=== PATIENT | female | born 1995 | race Caucasian/White ===

== ENCOUNTER → 2016-10-10 | Outpatient (CLI) | payer OTHER ==
--- NOTE | 2016-10-10 16:18 | US ---
EXAMINATION TYPE: US thyroid st tissue head/neck DATE OF EXAM: 10/10/2016 3:49 PM COMPARISON: NONE CLINICAL HISTORY: hypothyroidism. GLAND SIZE: Right Lobe: 4.8 x 1.3 x 1.7cm Overall Parenchyma: homogenous Left Lobe: 4.9 x 1.3 x 1.8cm Overall Parenchyma: homogeneous Isthmus Thickness: 0.1cm [employer] TECHNOLOGIST IMPRESSION: Bilateral neck scanned, no abnormal lymphadenopathy noted. Thyroid gland is normal in size and homogeneous in echotexture. No suspicious solid or cystic nodules are evident. IMPRESSION: Normal study.
== END | disposition home or self-care (01) ==
LOC: RADUSMAIN 15:26
PROVIDERS: ATTEND Family Medicine
DX: E03.9 Hypothyroidism, unspecified (principal)
CPT/HCPCS: 76536

== ENCOUNTER 2018-12-01 22:57 | Emergency (ER) | payer OTHER ==
[2018-12-01 23:49] LABS: Appearance,Urine Clear (Clear); Bacteria,Urine Rare /hpf; Bilirubin,Urine Negative (Negative); Blood,Urine Small (Negative); Color,Urine Yellow; Glucose,Urine (UA) Negative (Negative); Ketones,Urine Negative (Negative); Leukocyte Esterase,Urine Small (Negative); Mucus,Urine Rare /hpf; Nitrite,Urine Negative (Negative); Protein,Urine Trace (Negative); RBC,Urine 11 /hpf (0-5); Specific Gravity,Urine 1.013 (1.001-1.035); Squamous Epithelial Cell,Urine 1 /hpf (0-4); Urobilinogen,Urine <2.0 mg/dL (<2.0); WBC,Urine 21 /hpf (0-5)
[2018-12-02 00:26] LABS: Basophils # (A) 0.1 k/uL (0-0.2); Basophils % (A) 0 %; Eosinophils # (A) 0.3 k/uL (0-0.7); Eosinophils % (A) 2 %; HCT 39.2 % (34.0-46.0); HGB 12.8 gm/dL (11.4-16.0); Lymphocytes # (A) 3.7 k/uL (1.0-4.8); Lymphocytes % (A) 26 %; MCH 29.3 pg (25.0-35.0); MCHC 32.7 g/dL (31.0-37.0); MCV 89.5 fL (80.0-100.0); Mean Platelet Volume 5.9; Monocytes # (A) 0.5 k/uL (0-1.0); Monocytes % (A) 4 %; Neutrophils # (A) 9.5 k/uL (1.3-7.7); Neutrophils % (A) 67 %; Platelet Count 369 k/uL (150-450); RBC 4.38 m/uL (3.80-5.40); RDW 13.3 % (11.5-15.5); WBC 14.2 k/uL (3.8-10.6)
[2018-12-02 00:36] LABS: ALT 26 U/L (9-52); AST 14 U/L (14-36); Albumin 4.1 g/dL (3.5-5.0); Alkaline Phosphatase 66 U/L (38-126); Amylase 52 U/L (30-110); Anion Gap 8 mmol/L; Blood Urea Nitrogen 14 mg/dL (7-17); Calcium 9.5 mg/dL (8.4-10.2); Carbon Dioxide 27 mmol/L (22-30); Chloride 107 mmol/L (98-107); Glucose 110 mg/dL (74-99); Lipase 75 U/L (23-300); Potassium 4.3 mmol/L (3.5-5.1); Sodium 142 mmol/L (137-145); Total Bilirubin 0.4 mg/dL (0.2-1.3); Total Protein 7.8 g/dL (6.3-8.2)
[2018-12-02] MEDS ORDERED: KETOROLAC 30 MG/ML 1 ML VIAL IVP STA (01:03)
--- NOTE | 2018-12-02 01:07 | CT ---
EXAM: CT Abdomen and Pelvis With Intravenous Contrast CLINICAL HISTORY: right sided abd pain, prior on pacs, DLP TECHNIQUE: Axial computed tomography images of the abdomen and pelvis with 100 mL of Isovue-300 intravenous contrast. CTDI is 47 mGy and DLP is 2228.9 mGy- cm. This CT exam was performed using one or more of the following dose reduction techniques: automated exposure control, adjustment of the mA and/or kV according to patient size, and/or use of iterative reconstruction technique. COMPARISON: Pelvic ultrasound from 08-01-16 FINDINGS: Lung bases: Unremarkable. No mass. No consolidation. ABDOMEN: Liver: Moderately enlarged fatty liver. Gallbladder and bile ducts: Unremarkable. No calcified stones. No ductal dilation. Pancreas: Unremarkable. No mass. No ductal dilation. Spleen: Unremarkable. No splenomegaly. Adrenals: Unremarkable. No mass. Kidneys and ureters: Unremarkable. No solid mass. No hydronephrosis. Stomach and bowel: Unremarkable. No obstruction. No mucosal thickening. PELVIS: Appendix: Normal. Bladder: Unremarkable. No mass. Reproductive: Unremarkable as visualized. ABDOMEN and PELVIS: Intraperitoneal space: Unremarkable. No free air. No significant fluid collection. Bones/joints: No acute fracture. No dislocation. Soft tissues: Unremarkable. Vasculature: Unremarkable. No abdominal aortic aneurysm. Lymph nodes: Unremarkable. No enlarged lymph nodes. IMPRESSION: No acute findings. Mildly enlarged fatty liver
[2018-12-02] MEDS ORDERED: cefTRIAXone IN SWFI 1,000 MG/10 ML SYRINGE IVP STA (01:14)
--- NOTE | 2018-12-02 01:17 | ED ---
General Adult HPI - General Source: patient, family Mode of arrival: ambulatory Limitations: no limitations <Robin Chavarria P - Last Filed: 12/02/18 01:32> <Jenna Haji P - Last Filed: 12/02/18 01:58> - General Chief complaint: Abdominal Pain Stated complaint: abd pain Time Seen by Provider: 12/01/18 23:19 - History of Present Illness Initial comments: 23-year-old female presents to the emergency department for multiple complaints. Patient states she has bilateral back pain. She states this has been going on since this morning. Patient states she also does have some dysuria. Patient admits to lower abdominal pain as well. Denies nausea or vomiting. Denies fevers or chills. Patient has no other complaints at this time including shortness of breath, chest pain, nausea or vomiting, headache, or visual changes. (Robin Chavarria) - Related Data Home Medications Medication Instructions Recorded Confirmed Cyclobenzaprine [Flexeril] 10 mg PO HS 12/05/14 08/07/16 Ibuprofen [Motrin] 800 mg PO Q8HR PRN 12/05/14 08/07/16 Levothyroxine Sodium [Synthroid] 25 mcg PO DAILY 12/05/14 08/07/16 Nortriptyline HCl [Pamelor] 50 mg PO HS 12/05/14 08/07/16 Ondansetron [Zofran] 4 mg PO Q8HR PRN 12/05/14 08/07/16 Previous Rx's Medication Instructions Recorded Ibuprofen [Motrin] 600 mg PO Q8HR PRN #20 tab 12/05/14 LORazepam [Ativan] 0.5 mg PO Q8H PRN #5 tab 06/06/15 Baclofen 10 mg PO TID #30 tab 08/07/16 traMADol HCl [Ultram] 50 mg PO Q6H PRN #20 tab 08/07/16 Cephalexin [Keflex] 500 mg PO Q6HR 3 Days #12 cap 12/02/18 Allergies Allergy/AdvReac Type Severity Reaction Status Date / Time apple Allergy Nausea & Verified 12/01/18 23:15 Vomiting & Diarrhea codeine Allergy Rash/Hives Verified 12/01/18 23:15 furosemide [From Lasix] Allergy Anaphylaxis Verified 12/01/18 23:15 latex Allergy Anaphylaxis Verified 12/01/18 23:15 maitake mushroom Allergy Nausea & Verified 12/01/18 23:15 Vomiting & Diarrhea shellfish derived Allergy Nausea & Verified 12/01/18 23:15 Vomiting & Diarrhea Review of Systems ROS Other: All systems not noted in ROS Statement are negative. <Robin Chavarria P - Last Filed: 12/02/18 01:32> ROS Other: All systems not noted in ROS Statement are negative. <Jenna Haji P - Last Filed: 12/02/18 01:58> ROS Statement: Those systems with pertinent positive or pertinent negative responses have been documented in the HPI. Past Medical History Past Medical History: Asthma, Hypertension, Thyroid Disorder Additional Past Medical History / Comment(s): 1/2 Deaf, polycystic ovarian disease History of Any Multi-Drug Resistant Organisms: None Reported Past Surgical History: Adenoidectomy, Tonsillectomy Additional Past Surgical History / Comment(s): Right Eye Surgery, Tubes in Ears , Herniated Disc, Buldging Disc Past Psychological History: Anxiety, Depression Smoking Status: Never smoker Past Alcohol Use History: None Reported Past Drug Use History: None Reported <Robin Chavarria P - Last Filed: 12/02/18 01:32> General Exam Limitations: no limitations General appearance: alert, in no apparent distress Head exam: Present: atraumatic, normocephalic, normal inspection Eye exam: Present: normal appearance, PERRL, EOMI. Absent: scleral icterus, conjunctival injection, periorbital swelling ENT exam: Present: normal exam, mucous membranes moist Neck exam: Present: normal inspection, full ROM Respiratory exam: Present: normal lung sounds bilaterally. Absent: respiratory distress, wheezes, rales, rhonchi, stridor Cardiovascular Exam: Present: regular rate, normal rhythm, normal heart sounds. Absent: systolic murmur, diastolic murmur, rubs, gallop, clicks GI/Abdominal exam: Present: soft, normal bowel sounds. Absent: distended, tenderness, guarding, rebound, rigid Back exam: Absent: CVA tenderness (R) (no significant CVA tenderness), CVA tenderness (L) (no significant tenderness) Neurological exam: Present: alert, oriented X3, CN II-XII intact Psychiatric exam: Present: normal affect, normal mood <Robin Chavarria P - Last Filed: 12/02/18 01:32> Vital Signs 12/01/18 12/02/18 23:10 01:31 Temperature 98.3 F 98.4 F Pulse Rate 96 84 Respiratory 20 18 Rate Blood Pressure 142/81 140/92 O2 Sat by Pulse 100 98 Oximetry Medical Decision Making - Lab Data Result diagrams: 12/02/18 00:13 12/02/18 00:13 <Robin Chavarria P - Last Filed: 12/02/18 01:32> - Lab Data Result diagrams: 12/02/18 00:13 12/02/18 00:13 <Jenna Haji - Last Filed: 12/02/18 01:58> - Medical Decision Making 23-year-old female presents for multiple complaints. Patient has had bilateral flank pain and right lower quadrant pain times one day. No nausea or vomiting. No fevers. Patient does have right lower quadrant tenderness. Patient states she has a history of polycystic ovarian syndrome. CBC did show white count of 14 which is likely reactive. CMP within normal limits. Urine shows possible UTI which may be contributing to hematuria. CT was ordered given hematuria to the seat for nephrolithiasis. He was also ordered to evaluate for appendicitis as patient does have a white count with right lower quadrant pain. However CT negative. Discussed at this time with patient concern for secondary transmitted diseases which could cause lower pelvic pain. Patient states she does not have any concern for this. She recently got tested a few weeks ago which was negative and she has not changed any practices. Patient given Rocephin here and will be treated for urinary tract infection. Will follow up with primary care in the next couple days. Will return to the emergency Department if she has any worsening symptoms. (Robin Chavarria) I was available for consultation in the emergency department. The history and physical exam were done by the midlevel provider. I was consulted for this patient's care. I reviewed the case with the midlevel provider and based on their presentation of the patient, I agree with the assessment, medical decision making and plan of care as documented. (Jenna Haji) - Lab Data Lab Results 12/01/18 12/01/18 12/02/18 Range/Units 23:21 23:21 00:13 WBC (3.8-10.6) k/uL RBC (3.80-5.40) m/uL Hgb (11.4-16.0) gm/dL Hct (34.0-46.0) % MCV (80.0-100.0) fL MCH (25.0-35.0) pg MCHC (31.0-37.0) g/dL RDW (11.5-15.5) % Plt Count (150-450) k/uL Neutrophils % % Lymphocytes % % Monocytes % % Eosinophils % % Basophils % % Neutrophils # (1.3-7.7) k/uL Lymphocytes # (1.0-4.8) k/uL Monocytes # (0-1.0) k/uL Eosinophils # (0-0.7) k/uL Basophils # (0-0.2) k/uL Sodium 142 (137-145) mmol/L Potassium 4.3 (3.5-5.1) mmol/L Chloride 107 (98-107) mmol/L Carbon Dioxide 27 (22-30) mmol/L Anion Gap 8 mmol/L BUN 14 (7-17) mg/dL Creatinine 0.70 (0.52-1.04) mg/dL Est GFR (CKD-EPI)AfAm >90 (>60 ml/min/1.73 sqM) Est GFR (CKD-EPI)NonAf >90 (>60 ml/min/1.73 sqM) Glucose 110 H (74-99) mg/dL Calcium 9.5 (8.4-10.2) mg/dL Total Bilirubin 0.4 (0.2-1.3) mg/dL AST 14 (14-36) U/L ALT 26 (9-52) U/L Alkaline Phosphatase 66 (38-126) U/L Total Protein 7.8 (6.3-8.2) g/dL Albumin 4.1 (3.5-5.0) g/dL Amylase 52 (30-110) U/L Lipase 75 (23-300) U/L Urine Color Yellow Urine Appearance Clear (Clear) Urine pH 6.0 (5.0-8.0) Ur Specific [place] 1.013 (1.001-1.035) Urine Protein Trace H (Negative) Urine Glucose (UA) Negative (Negative) Urine Ketones Negative (Negative) Urine Blood Small H (Negative) Urine Nitrite Negative (Negative) Urine Bilirubin Negative (Negative) Urine Urobilinogen <2.0 (<2.0) mg/dL Ur Leukocyte Esterase Small H (Negative) Urine RBC 11 H (0-5) /hpf Urine WBC 21 H (0-5) /hpf Ur Squamous Epith Cells 1 (0-4) /hpf Urine Bacteria Rare H (None) /hpf Urine Mucus Rare H (None) /hpf Urine HCG, Qual Not Detected (Not Detectd) 12/02/18 Range/Units 00:13 WBC 14.2 H (3.8-10.6) k/uL RBC 4.38 (3.80-5.40) m/uL Hgb 12.8 (11.4-16.0) gm/dL Hct 39.2 (34.0-46.0) % MCV 89.5 (80.0-100.0) fL MCH 29.3 (25.0-35.0) pg MCHC 32.7 (31.0-37.0) g/dL RDW 13.3 (11.5-15.5) % Plt Count 369 (150-450) k/uL Neutrophils % 67 % Lymphocytes % 26 % Monocytes % 4 % Eosinophils % 2 % Basophils % 0 % Neutrophils # 9.5 H (1.3-7.7) k/uL Lymphocytes # 3.7 (1.0-4.8) k/uL Monocytes # 0.5 (0-1.0) k/uL Eosinophils # 0.3 (0-0.7) k/uL Basophils # 0.1 (0-0.2) k/uL Sodium (137-145) mmol/L Potassium (3.5-5.1) mmol/L Chloride (98-107) mmol/L Carbon Dioxide (22-30) mmol/L Anion Gap mmol/L BUN (7-17) mg/dL Creatinine (0.52-1.04) mg/dL Est GFR (CKD-EPI)AfAm (>60 ml/min/1.73 sqM) Est GFR (CKD-EPI)NonAf (>60 ml/min/1.73 sqM) Glucose (74-99) mg/dL Calcium (8.4-10.2) mg/dL Total Bilirubin (0.2-1.3) mg/dL AST (14-36) U/L ALT (9-52) U/L Alkaline Phosphatase (38-126) U/L Total Protein (6.3-8.2) g/dL Albumin (3.5-5.0) g/dL Amylase (30-110) U/L Lipase (23-300) U/L Urine Color Urine Appearance (Clear) Urine pH (5.0-8.0) Ur Specific [place] (1.001-1.035) Urine Protein (Negative) Urine Glucose (UA) (Negative) Urine Ketones (Negative) Urine Blood (Negative) Urine Nitrite (Negative) Urine Bilirubin (Negative) Urine Urobilinogen (<2.0) mg/dL Ur Leukocyte Esterase (Negative) Urine RBC (0-5) /hpf Urine WBC (0-5) /hpf Ur Squamous Epith Cells (0-4) /hpf Urine Bacteria (None) /hpf Urine Mucus (None) /hpf Urine HCG, Qual (Not Detectd) Disposition Is patient prescribed a controlled substance at d/c from ED?: No Time of Disposition: 01:27 <Robin Chavarria P - Last Filed: 12/02/18 01:32> <Jenna Haji P - Last Filed: 12/02/18 01:58> Clinical Impression: Urinary tract infection, Abdominal pain Disposition: HOME SELF-CARE Condition: Good Instructions (If sedation given, give patient instructions): Urinary Tract Infection in Women (ED) Additional Instructions: Please take antibiotic as directed. Please follow up with primary care in 1-2 days. If symptoms are worsening return to the emergency department. Prescriptions: Cephalexin [Keflex] 500 mg PO Q6HR 3 Days #12 cap Referrals: Emmanuelle Hernandez MD [Primary Care Provider] - 1-2 days
[2018-12-02 01:32] VITALS: BP 140/92; PULSE 84; RESP 18; TEMP 98.4
[2018-12-04 13:20] LABS: N. gonorrhoeae,PCR Negative (Neg,Equiv); Neisseria Source Urine
[2018-12-04 13:43] LABS: C. trachomatis,PCR Negative (Neg,Equiv); Chlamydia trachomatis Source Urine
== END 2018-12-02 01:41 | disposition home or self-care (01) ==
LOC: EC 22:57
DX: N39.0 Urinary tract infection, site not specified (principal); R10.31 Right lower quadrant pain; E07.9 Disorder of thyroid, unspecified; F32.9 Major depressive disorder, single episode, unspecified; F41.9 Anxiety disorder, unspecified; Z79.890 Hormone replacement therapy; Z79.899 Other long term (current) drug therapy; Z91.018 Allergy to other foods; Z91.040 Latex allergy status; Z91.013 Allergy to seafood; Z88.8 Allergy status to other drugs, medicaments and biological substances; Z88.5 Allergy status to narcotic agent
CPT/HCPCS: 36415; 80053; 82150; 83690; 85025; 81001; 81025; 87040; 87491; 87591; 87086; 74177; 99284; 96374; 96375; J0696; J1885; Q9967; 87077; 87186

== ENCOUNTER 2020-06-14 13:52 | Emergency (ER) | payer BC, OTHER ==
[2020-06-14 14:05] VITALS: BP 156/109; PULSE 100; RESP 18; TEMP 98.1
[2020-06-14] MEDS ORDERED: SODIUM CHLORIDE 0.9% 1,000 ML IV STA (14:34)
--- NOTE | 2020-06-14 14:34 | ED ---
General Adult HPI - General Chief complaint: Dizziness Stated complaint: Dizziness, Vomiting Time Seen by Provider: 06/14/20 14:07 Source: patient Mode of arrival: ambulatory Limitations: no limitations - History of Present Illness Initial comments: Dictation was produced using [employer] dictation software. please excuse any grammatical, word or spelling errors. This patient was cared for during a federal and state declared state of emergency secondary to Covid 19 Chief Complaint: 24-year-old female past medical history of hypertension, thyroid disease, pCO2 of some asthma presents with dizziness History of Present Illness: Since 24-year-old female presents today with dizziness. Patient states that her symptoms started at 6 AM this morning. She went to bed last night in her usual state of health.. She'll go at 6 AM this morning with paraspinal left pain that radiates up and down her back. She was complains of dizziness. She feels as though the room is spinning. She reports that her symptoms are worse and movement. And a fatigue when she is not moving. She denies any vision changes. She had an episode of nonbilious nonbloody emesis. She is history of hearing deficit and required ear surgery as a child. The ROS documented in this emergency department record has been reviewed and confirmed by me. Those systems with pertinent positive or negative responses have been documented in the HPI. All other systems are other negative and/or noncontributory. PHYSICAL EXAM: General Impression: Alert and oriented x3, not in acute distress HEENT: Normocephalic atraumatic, extra-ocular movements intact, pupils equal and reactive to light bilaterally, mucous membranes moist. Cardiovascular: Heart regular rate and rhythm Chest: Able to complete full sentences, no retractions, no tachypnea Abdomen: abdomen soft, non-tender, non-distended, no organomegaly Musculoskeletal: Pulses present and equal in all extremities, no peripheral edema Motor: no focal deficits noted Neurological: CN II-XII grossly intact, no focal motor or sensory deficits noted, no nystagmus Skin: Intact with no visualized rashes Psych: Normal affect and mood ED course: 24-year-old feel presents with positional vertigo signs upon arrival are within acceptable limits. Laboratory evaluation obtained. CBC, metabolic panel is unremarkable. Beta hCG is negative. Patient given Antivert and Zofran with improvement of symptoms. Patient has benign features with her dizziness. Patient given prescription for Antivert and Zofran. She is advised to follow-up with her primary care physician for outpatient management of her symptoms. Return parameters discussed. Patient discharged. EKG interpretation: Ventricular rate 93, normal sinus rhythm, TN interval 160, QRS 84, QTC 477. No TN prolongation, no QTC prolongation, no ST or T-wave changes noted. . Overall, this EKG is unremarkable - Related Data Home Medications Medication Instructions Recorded Confirmed Cyclobenzaprine [Flexeril] 10 mg PO HS 12/05/14 08/07/16 Ibuprofen [Motrin] 800 mg PO Q8HR PRN 12/05/14 08/07/16 Levothyroxine Sodium [Synthroid] 25 mcg PO DAILY 12/05/14 08/07/16 Nortriptyline HCl [Pamelor] 50 mg PO HS 12/05/14 08/07/16 Ondansetron [Zofran] 4 mg PO Q8HR PRN 12/05/14 08/07/16 Previous Rx's Medication Instructions Recorded Ibuprofen [Motrin] 600 mg PO Q8HR PRN #20 tab 12/05/14 LORazepam [Ativan] 0.5 mg PO Q8H PRN #5 tab 06/06/15 Baclofen 10 mg PO TID #30 tab 08/07/16 traMADol HCl [Ultram] 50 mg PO Q6H PRN #20 tab 08/07/16 Cephalexin [Keflex] 500 mg PO Q6HR 3 Days #12 cap 12/02/18 Meclizine [Antivert] 25 mg PO TID PRN #15 tab 06/14/20 Ondansetron Odt [Zofran Odt] 4 mg PO Q8HR PRN #12 tab 06/14/20 Allergies Allergy/AdvReac Type Severity Reaction Status Date / Time apple Allergy Nausea & Verified 06/14/20 14:02 Vomiting & Diarrhea codeine Allergy Rash/Hives Verified 06/14/20 14:02 furosemide [From Lasix] Allergy Anaphylaxis Verified 06/14/20 14:02 latex Allergy Anaphylaxis Verified 06/14/20 14:02 maitake mushroom Allergy Nausea & Verified 06/14/20 14:02 Vomiting & Diarrhea shellfish derived Allergy Nausea & Verified 06/14/20 14:02 Vomiting & Diarrhea Review of Systems ROS Statement: Those systems with pertinent positive or pertinent negative responses have been documented in the HPI. ROS Other: All systems not noted in ROS Statement are negative. Past Medical History Past Medical History: Asthma, Hypertension, Thyroid Disorder Additional Past Medical History / Comment(s): 1/2 Deaf, polycystic ovarian dis ease History of Any Multi-Drug Resistant Organisms: None Reported Past Surgical History: Adenoidectomy, Tonsillectomy Additional Past Surgical History / Comment(s): Right Eye Surgery, Tubes in Ears, Herniated Disc, Buldging Disc Past Psychological History: Anxiety, Depression Smoking Status: Never smoker Past Alcohol Use History: Occasional Past Drug Use History: None Reported General Exam Limitations: no limitations Course Vital Signs 06/14/20 14:02 Temperature 98.1 F Pulse Rate 100 Respiratory 18 Rate Blood Pressure 156/109 O2 Sat by Pulse 98 Oximetry Medical Decision Making - Lab Data Result diagrams: 06/14/20 14:40 06/14/20 14:40 Lab Results 06/14/20 06/14/20 06/14/20 Range/Units 14:33 14:40 14:40 WBC 10.2 (3.8-10.6) k/uL RBC 4.88 (3.80-5.40) m/uL Hgb 13.9 (11.4-16.0) gm/dL Hct 43.2 (34.0-46.0) % MCV 88.6 (80.0-100.0) fL MCH 28.4 (25.0-35.0) pg MCHC 32.1 (31.0-37.0) g/dL RDW 13.0 (11.5-15.5) % Plt Count 367 (150-450) k/uL Neutrophils % 65 % Lymphocytes % 28 % Monocytes % 5 % Eosinophils % 1 % Basophils % 1 % Neutrophils # 6.6 (1.3-7.7) k/uL Lymphocytes # 2.8 (1.0-4.8) k/uL Monocytes # 0.5 (0-1.0) k/uL Eosinophils # 0.1 (0-0.7) k/uL Basophils # 0.1 (0-0.2) k/uL Sodium 139 (137-145) mmol/L Potassium 4.1 (3.5-5.1) mmol/L Chloride 106 (98-107) mmol/L Carbon Dioxide 26 (22-30) mmol/L Anion Gap 7 mmol/L BUN 10 (7-17) mg/dL Creatinine 0.66 (0.52-1.04) mg/dL Est GFR (CKD-EPI)AfAm >90 (>60 ml/min/1.73 sqM) Est GFR (CKD-EPI)NonAf >90 (>60 ml/min/1.73 sqM) Glucose 113 H (74-99) mg/dL Calcium 9.1 (8.4-10.2) mg/dL Urine HCG, Qual Not Detected (Not Detectd) Disposition Clinical Impression: Dizziness Disposition: HOME SELF-CARE Condition: Good Instructions (If sedation given, give patient instructions): Dizziness (ED) Additional Instructions: prescriptions sent to your preferred pharmacy Prescriptions: Meclizine [Antivert] 25 mg PO TID PRN #15 tab PRN Reason: dizziness Ondansetron Odt [Zofran Odt] 4 mg PO Q8HR PRN #12 tab PRN Reason: Nausea Is patient prescribed a controlled substance at d/c from ED?: No Referrals: Emmanuelle Hernandez MD [Primary Care Provider] - 1-2 days Time of Disposition: 15:21
[2020-06-14 14:53] LABS: Basophils # (A) 0.1 k/uL (0-0.2); Basophils % (A) 1 %; Eosinophils # (A) 0.1 k/uL (0-0.7); Eosinophils % (A) 1 %; HCT 43.2 % (34.0-46.0); HGB 13.9 gm/dL (11.4-16.0); Lymphocytes # (A) 2.8 k/uL (1.0-4.8); Lymphocytes % (A) 28 %; MCH 28.4 pg (25.0-35.0); MCHC 32.1 g/dL (31.0-37.0); MCV 88.6 fL (80.0-100.0); Monocytes # (A) 0.5 k/uL (0-1.0); Monocytes % (A) 5 %; Neutrophils # (A) 6.6 k/uL (1.3-7.7); Neutrophils % (A) 65 %; Platelet Count 367 k/uL (150-450); RBC 4.88 m/uL (3.80-5.40); WBC 10.2 k/uL (3.8-10.6)
[2020-06-14 15:02] LABS: African American GFR (CKD) >90 (>60 ml/min/1.73 sqM); Anion Gap 7 mmol/L; Blood Urea Nitrogen 10 mg/dL (7-17); Calcium 9.1 mg/dL (8.4-10.2); Carbon Dioxide 26 mmol/L (22-30); Chloride 106 mmol/L (98-107); Glucose 113 mg/dL (74-99); Non-African American GFR(CKD) >90 (>60 ml/min/1.73 sqM); Potassium 4.1 mmol/L (3.5-5.1); Sodium 139 mmol/L (137-145)
[2020-06-14] MEDS ORDERED: MECLIZINE 12.5 MG TAB PO STA (15:04)
[2020-06-14] MEDS ORDERED: ONDANSETRON ODT 8 MG TAB.RAPDIS PO STA (15:04)
== END 2020-06-14 15:59 | disposition home or self-care (01) ==
LOC: EC 13:52
DX: R42 Dizziness and giddiness (principal); R53.83 Other fatigue; R11.10 Vomiting, unspecified; E07.9 Disorder of thyroid, unspecified; F32.9 Major depressive disorder, single episode, unspecified; Z79.890 Hormone replacement therapy; Z79.899 Other long term (current) drug therapy; Z88.8 Allergy status to other drugs, medicaments and biological substances; Z91.048 Other nonmedicinal substance allergy status; Z91.040 Latex allergy status; Z91.013 Allergy to seafood; Z91.018 Allergy to other foods; Z88.5 Allergy status to narcotic agent
CPT/HCPCS: 36415; 80048; 81025; 85025; 93005; 96360; 99284

== ENCOUNTER → 2020-08-21 | Outpatient (CLI) | payer BC ==
--- NOTE | 2020-08-21 07:56 | CT ---
EXAMINATION TYPE: CT sinus wo con DATE OF EXAM: 08/21/2020 COMPARISON: None HISTORY: Neoplasm of uncertain behavior of pharynx CT DLP: 648.[address] of the paranasal sinuses was performed in the axial and coronal planes. Bone and soft tissue settings are submitted. The paranasal sinuses demonstrate normal aeration and development. The paranasal sinuses are free of mucosal thickening or air fluid level. The osteal meatal units are patent bilaterally. The nasal septum is midline. No bony destructive changes are seen within the field of view. IMPRESSION: Normal unenhanced CT of the paranasal sinuses.
== END | disposition home or self-care (01) ==
LOC: RADCTMAIN 07:08
PROVIDERS: ATTEND Otolaryngology Otolaryngic Allergy
DX: D37.05 Neoplasm of uncertain behavior of pharynx (principal)
CPT/HCPCS: 70486

== ENCOUNTER 2021-01-18 21:33 | Emergency (ER) | payer BC ==
[2021-01-18 22:19] VITALS: RESP 18
--- NOTE | 2021-01-19 00:07 | XR ---
EXAMINATION TYPE: XR chest 2V DATE OF EXAM: 01/19/2021 COMPARISON: NONE HISTORY: 08/19/2015 TECHNIQUE: 2 views FINDINGS: Heart and mediastinum are normal. Lungs are clear. Diaphragm is normal. Bony thorax appears normal. IMPRESSION: Normal chest. No change.
[2021-01-19 01:44] VITALS: BP 114/65; PULSE 71; TEMP 97.6
--- NOTE | 2021-01-19 01:49 | ED ---
Chest Pain HPI - General Chief Complaint: Chest Pain Stated Complaint: Chest pain,Light headed Source: patient Mode of arrival: wheelchair Limitations: no limitations - History of Present Illness Initial Comments: This patient is 25-year-old woman who presents to be alive for pain to the left anterior chest that came on tonight around 5O she was at work. She was also feeling dizzy and her breathing did not feel right. Patient reportedly took blood pressure at work and it was very high. No diaphoresis, palpitations, nausea or vomiting. When I am interviewing the patient, she states the pain is better she does continue to have some dizziness. MD Complaint: chest pain Onset/Timin -: hour(s) Onset: during rest Pain Location: left chest Pain Radiation: none Quality: aching Consistency: constant Improves With: nothing Worsens With: nothing - Related Data Home Medications Medication Instructions Recorded Confirmed Cyclobenzaprine [Flexeril] 10 mg PO HS 12/05/14 08/07/16 Ibuprofen [Motrin] 800 mg PO Q8HR PRN 12/05/14 08/07/16 Levothyroxine Sodium [Synthroid] 25 mcg PO DAILY 12/05/14 08/07/16 Nortriptyline HCl [Pamelor] 50 mg PO HS 12/05/14 08/07/16 Ondansetron [Zofran] 4 mg PO Q8HR PRN 12/05/14 08/07/16 Previous Rx's Medication Instructions Recorded Ibuprofen [Motrin] 600 mg PO Q8HR PRN #20 tab 12/05/14 LORazepam [Ativan] 0.5 mg PO Q8H PRN #5 tab 06/06/15 Baclofen 10 mg PO TID #30 tab 08/07/16 traMADol HCl [Ultram] 50 mg PO Q6H PRN #20 tab 08/07/16 Cephalexin [Keflex] 500 mg PO Q6HR 3 Days #12 cap 12/02/18 Meclizine [Antivert] 25 mg PO TID PRN #15 tab 06/14/20 Ondansetron Odt [Zofran Odt] 4 mg PO Q8HR PRN #12 tab 06/14/20 Allergies Allergy/AdvReac Type Severity Reaction Status Date / Time apple Allergy Nausea & Verified 06/14/20 14:02 Vomiting & Diarrhea codeine Allergy Rash/Hives Verified 06/14/20 14:02 furosemide [From Lasix] Allergy Anaphylaxis Verified 06/14/20 14:02 latex Allergy Anaphylaxis Verified 06/14/20 14:02 maitake mushroom Allergy Nausea & Verified 06/14/20 14:02 Vomiting & Diarrhea shellfish derived Allergy Nausea & Verified 06/14/20 14:02 Vomiting & Diarrhea Review of Systems ROS Statement: Those systems with pertinent positive or pertinent negative responses have been documented in the HPI. ROS Other: All systems not noted in ROS Statement are negative. Constitutional: Denies: fever, chills, weakness Eyes: Denies: vision change ENT: Denies: congestion Respiratory: Denies: cough, dyspnea Cardiovascular: Reports: as per HPI, chest pain. Denies: palpitations, orthopnea, edema, syncope Gastrointestinal: Denies: abdominal pain, nausea, vomiting, diarrhea Genitourinary: Denies: dysuria, hematuria Musculoskeletal: Denies: back pain Skin: Denies: rash Neurological: Reports: vertigo. Denies: headache, weakness, numbness, paresthesias, confusion EKG Findings - EKG Results: EKG: interpreted by DORA EVANS, sinus rhythm (Rate 79 bpm), normal axis, normal QRS, normal ST/T, no acute changes Past Medical History Past Medical History: Asthma, Hypertension, Thyroid Disorder Additional Past Medical History / Comment(s): 1/2 Deaf, polycystic ovarian disease History of Any Multi-Drug Resistant Organisms: None Reported Past Surgical History: Adenoidectomy, Tonsillectomy Additional Past Surgical History / Comment(s): Right Eye Surgery, Tubes in Ears, Herniated Disc, Buldging Disc Past Psychological History: Anxiety, Depression Smoking Status: Never smoker Past Alcohol Use History: Occasional Past Drug Use History: None Reported General Exam Limitations: no limitations General appearance: alert, in no apparent distress Head exam: Present: atraumatic, normocephalic Eye exam: Present: normal appearance. Absent: scleral icterus, conjunctival injection ENT exam: Present: normal oropharynx Neck exam: Present: normal inspection Respiratory exam: Present: normal lung sounds bilaterally, chest wall tenderness. Absent: respiratory distress, wheezes, rales, rhonchi, stridor Cardiovascular Exam: Present: regular rate, normal rhythm, normal heart sounds. Absent: systolic murmur, diastolic murmur, rubs, gallop GI/Abdominal exam: Present: soft. Absent: distended, tenderness, guarding, rebound, rigid, mass Extremities exam: Present: normal inspection, normal capillary refill. Absent: pedal edema, calf tenderness Back exam: Present: normal inspection. Absent: CVA tenderness (R), CVA tenderness (L) Neurological exam: Present: alert Skin exam: Present: warm, dry, intact, normal color. Absent: rash Course Vital Signs 01/18/21 01/19/21 22:18 01:42 Temperature 97.9 F 97.6 F Pulse Rate 81 71 Respiratory 18 18 Rate Blood Pressure 138/81 114/65 O2 Sat by Pulse 100 98 Oximetry Chest Pain MDM - MDM This patient is 25-year-old woman with pain to the left anterior chest and into the shoulder. I did see her in the triage area as there was quite a long wait. I reviewed the patient's chest x-ray and EKG which had been done and these are normal. When I shared the results of this with her she stated that she was going home and she will return if the symptoms were not better. Again the exam the left anterior chest pain is reproducible. Reviewed that there is risk in leaving as we had not had chance to perform any additional tests, patient understands states she will return if symptoms are not improved or if there is any worsening in anyway. Disposition Clinical Impression: Chest pain Disposition: Left Against Medical Advice Condition: Undetermined Instructions (If sedation given, give patient instructions): Chest Pain (ED) Is patient prescribed a controlled substance at d/c from ED?: No Referrals: Mulugeta Wong MD [Primary Care Provider] - 1-2 days
== END 2021-01-19 01:50 | disposition home or self-care (01) ==
LOC: EC 21:33
DX: R07.89 Other chest pain (principal); R42 Dizziness and giddiness; I10 Essential (primary) hypertension; F41.9 Anxiety disorder, unspecified; F32.9 Major depressive disorder, single episode, unspecified; J45.909 Unspecified asthma, uncomplicated; Z79.899 Other long term (current) drug therapy
CPT/HCPCS: 71046; 93005; 99285

== ENCOUNTER 2021-05-30 00:51 | Emergency (ER) | payer BC ==
[2021-05-30 01:06] VITALS: BP 166/96; PULSE 112; RESP 20; TEMP 99.3
--- NOTE | 2021-05-30 02:37 | ED ---
Psych HPI - General Chief Complaint: Psychiatric Symptoms Stated Complaint: Mental Health Time Seen by Provider: 05/30/21 01:08 Source: patient Mode of arrival: ambulatory - History of Present Illness Initial Comments: 's patient is 25-year-old woman who presents with complaint of depressed mood and now are consistent thoughts of suicide. Patient states that it is now the anniversary of her father's and she has been more depressed. MD Complaint: suicidal ideation, feels depressed -: days(s) Associated Psychiatric Symptoms: depression, suicidal ideation Quality: getting worse Improves With: none Worsens With: none Context: significant life stressor - Related Data Home Medications Medication Instructions Recorded Confirmed Cyclobenzaprine [Flexeril] 10 mg PO HS 12/05/14 08/07/16 Ibuprofen [Motrin] 800 mg PO Q8HR PRN 12/05/14 08/07/16 Levothyroxine Sodium [Synthroid] 25 mcg PO DAILY 12/05/14 08/07/16 Nortriptyline HCl [Pamelor] 50 mg PO HS 12/05/14 08/07/16 Ondansetron [Zofran] 4 mg PO Q8HR PRN 12/05/14 08/07/16 Previous Rx's Medication Instructions Recorded Ibuprofen [Motrin] 600 mg PO Q8HR PRN #20 tab 12/05/14 LORazepam [Ativan] 0.5 mg PO Q8H PRN #5 tab 06/06/15 Baclofen 10 mg PO TID #30 tab 08/07/16 traMADol HCl [Ultram] 50 mg PO Q6H PRN #20 tab 08/07/16 Cephalexin [Keflex] 500 mg PO Q6HR 3 Days #12 cap 12/02/18 Meclizine [Antivert] 25 mg PO TID PRN #15 tab 06/14/20 Ondansetron Odt [Zofran Odt] 4 mg PO Q8HR PRN #12 tab 06/14/20 Allergies Allergy/AdvReac Type Severity Reaction Status Date / Time apple Allergy Nausea & Verified 05/30/21 01:06 Vomiting & Diarrhea codeine Allergy Rash/Hives Verified 05/30/21 01:06 furosemide [From Lasix] Allergy Anaphylaxis Verified 05/30/21 01:06 latex Allergy Anaphylaxis Verified 05/30/21 01:06 maitake mushroom Allergy Nausea & Verified 05/30/21 01:06 Vomiting & Diarrhea shellfish derived Allergy Nausea & Verified 05/30/21 01:06 Vomiting & Diarrhea Review of Systems ROS Statement: Those systems with pertinent positive or pertinent negative responses have been documented in the HPI. ROS Other: All systems not noted in ROS Statement are negative. Constitutional: Denies: fever Respiratory: Denies: cough, dyspnea Cardiovascular: Denies: chest pain, palpitations Gastrointestinal: Denies: abdominal pain, vomiting, diarrhea Musculoskeletal: Denies: back pain Skin: Denies: rash Neurological: Denies: headache Psychiatric: Reports: depression, suicidal thoughts. Denies: auditory hallucinations, visual hallucinations, homicidal thoughts Past Medical History Past Medical History: Asthma, Hypertension, Thyroid Disorder Additional Past Medical History / Comment(s): 1/2 Deaf, polycystic ovarian disease History of Any Multi-Drug Resistant Organisms: None Reported Past Surgical History: Adenoidectomy, Tonsillectomy Additional Past Surgical History / Comment(s): Right Eye Surgery, Tubes in Ears, Herniated Disc, Buldging Disc Past Psychological History: Anxiety, Depression Smoking Status: Never smoker Past Alcohol Use History: Occasional Past Drug Use History: None Reported General Exam Limitations: no limitations General appearance: alert, in no apparent distress Head exam: Present: atraumatic, normocephalic Eye exam: Present: normal appearance. Absent: scleral icterus, conjunctival injection ENT exam: Present: normal oropharynx Neck exam: Present: normal inspection Respiratory exam: Present: normal lung sounds bilaterally. Absent: respiratory distress, wheezes, rales, rhonchi, stridor Cardiovascular Exam: Present: regular rate, normal rhythm, normal heart sounds. Absent: systolic murmur, diastolic murmur, rubs, gallop GI/Abdominal exam: Present: soft. Absent: tenderness Extremities exam: Present: normal inspection, normal capillary refill Neurological exam: Present: alert Psychiatric exam: Present: depressed, suicidal ideation. Absent: agitated, anxious, flat affect, manic, homicidal ideation Skin exam: Present: warm, dry, intact, normal color. Absent: rash Course Vital Signs 05/30/21 01:03 Temperature 99.3 F Pulse Rate 112 H Respiratory 20 Rate Blood Pressure 166/96 O2 Sat by Pulse 96 Oximetry Disposition Clinical Impression: Mood disorder Disposition: HOME SELF-CARE Condition: Good Instructions (If sedation given, give patient instructions): Mood Disorders (ED), Suicide Prevention (ED) Is patient prescribed a controlled substance at d/c from ED?: No Referrals: Musa Dueñas III, MD [Primary Care Provider] - 1-2 days
== END 2021-05-30 03:40 | disposition home or self-care (01) ==
LOC: EC 00:51
DX: F32.9 Major depressive disorder, single episode, unspecified (principal); I10 Essential (primary) hypertension; E07.9 Disorder of thyroid, unspecified; J45.909 Unspecified asthma, uncomplicated; Z88.8 Allergy status to other drugs, medicaments and biological substances; Z91.040 Latex allergy status; Z91.013 Allergy to seafood; Z91.018 Allergy to other foods; Z88.5 Allergy status to narcotic agent; Z79.890 Hormone replacement therapy
CPT/HCPCS: 82075; 99284

== ENCOUNTER 2022-09-20 06:11 | Emergency (ER) | payer BC, OTHER ==
[2022-09-20] MEDS ORDERED: SODIUM CHLORIDE 0.9% 1,000 ML IV STA (06:25)
[2022-09-20 06:48] LABS: Basophils # (A) 0.1 k/uL (0-0.2); Basophils % (A) 1 %; Eosinophils # (A) 0.2 k/uL (0-0.7); Eosinophils % (A) 2 %; HCT 43.8 % (34.0-46.0); HGB 14.5 gm/dL (11.4-16.0); Lymphocytes # (A) 3.7 k/uL (1.0-4.8); Lymphocytes % (A) 33 %; MCH 30.6 pg (25.0-35.0); MCV 92.7 fL (80.0-100.0); Mean Platelet Volume 7.9; Monocytes # (A) 0.6 k/uL (0-1.0); Monocytes % (A) 6 %; Neutrophils # (A) 6.7 k/uL (1.3-7.7); Neutrophils % (A) 58 %; Platelet Count 360 k/uL (150-450); RBC 4.73 m/uL (3.80-5.40); WBC 11.4 k/uL (3.8-10.6)
--- NOTE | 2022-09-20 06:53 | ED ---
Abdominal Pain HPI - General Chief Complaint: Abdominal Pain Stated Complaint: Right lower abdominal pain Time Seen by Provider: 09/20/22 06:22 Source: patient, RN notes reviewed Mode of arrival: ambulatory Limitations: no limitations - History of Present Illness Initial Comments: 27-year-old female presents emergency Department with chief complaint right- sided abdominal pain. Patient states started a few days ago states that has progressed has not improved. Patient does admit that is wax and wane rates to the right flank region. She notes nausea vomiting diarrhea. She has a history of PCOS but states that this does not feel similar. She has no food association denies fevers chills chest pain or shortness of breath no shoulder pain. Denies any vaginal symptoms denies any chance . - Related Data Home Medications Medication Instructions Recorded Confirmed Cyclobenzaprine [Flexeril] 10 mg PO HS 12/05/14 08/07/16 Ibuprofen [Motrin] 800 mg PO Q8HR PRN 12/05/14 08/07/16 Levothyroxine Sodium [Synthroid] 25 mcg PO DAILY 12/05/14 08/07/16 Nortriptyline HCl [Pamelor] 50 mg PO HS 12/05/14 08/07/16 Ondansetron [Zofran] 4 mg PO Q8HR PRN 12/05/14 08/07/16 Previous Rx's Medication Instructions Recorded Ibuprofen [Motrin] 600 mg PO Q8HR PRN #20 tab 12/05/14 LORazepam [Ativan] 0.5 mg PO Q8H PRN #5 tab 06/06/15 Baclofen 10 mg PO TID #30 tab 08/07/16 traMADol HCl [Ultram] 50 mg PO Q6H PRN #20 tab 08/07/16 Cephalexin [Keflex] 500 mg PO Q6HR 3 Days #12 cap 12/02/18 Meclizine [Antivert] 25 mg PO TID PRN #15 tab 06/14/20 Ondansetron Odt [Zofran Odt] 4 mg PO Q8HR PRN #12 tab 06/14/20 Allergies Allergy/AdvReac Type Severity Reaction Status Date / Time apple Allergy Nausea & Verified 05/30/21 01:06 Vomiting & Diarrhea codeine Allergy Rash/Hives Verified 05/30/21 01:06 latex Allergy Anaphylaxis Verified 05/30/21 01:06 maitake mushroom Allergy Nausea & Verified 05/30/21 01:06 Vomiting & Diarrhea shellfish derived Allergy Nausea & Verified 05/30/21 01:06 Vomiting & Diarrhea Review of Systems ROS Statement: Those systems with pertinent positive or pertinent negative responses have been documented in the HPI. ROS Other: All systems not noted in ROS Statement are negative. Past Medical History Past Medical History: Asthma, Hypertension, Thyroid Disorder Additional Past Medical History / Comment(s): 1/2 Deaf, polycystic ovarian disease History of Any Multi-Drug Resistant Organisms: None Reported Past Surgical History: Adenoidectomy, Tonsillectomy Additional Past Surgical History / Comment(s): Right Eye Surgery, Tubes in Ears, Herniated Disc, Buldging Disc Past Psychological History: Anxiety, Depression Smoking Status: Never smoker Past Alcohol Use History: Occasional Past Drug Use History: None Reported General Exam Limitations: no limitations General appearance: alert, in no apparent distress Head exam: Present: atraumatic, normocephalic, normal inspection Eye exam: Present: normal appearance, PERRL, EOMI. Absent: scleral icterus, conjunctival injection, periorbital swelling ENT exam: Present: normal exam, normal oropharynx, mucous membranes moist Neck exam: Present: normal inspection, full ROM. Absent: tenderness, meningismus, lymphadenopathy Respiratory exam: Present: normal lung sounds bilaterally. Absent: respiratory distress, wheezes, rales, rhonchi, stridor Cardiovascular Exam: Present: regular rate, normal rhythm, normal heart sounds. Absent: systolic murmur, diastolic murmur, rubs, gallop, clicks GI/Abdominal exam: Present: soft, tenderness, normal bowel sounds. Absent: distended, guarding, rebound, rigid Back exam: Absent: CVA tenderness (R), CVA tenderness (L) Neurological exam: Present: alert Skin exam: Present: warm, dry, intact, normal color. Absent: rash Course Vital Signs 09/20/22 06:15 Temperature 97.9 F Pulse Rate 87 Respiratory 19 Rate Blood Pressure 156/95 O2 Sat by Pulse 99 Oximetry Medical Decision Making - Medical Decision Making 27-year-old presented for right-sided abdominal pain. Patient CT interpreted by me and radiology shows evidence of sasha kidney stone otherwise unremarkable patient does have PCOS patient glucose is elevated with 4+ glucose and her urinalysis patient was informed she is to follow-up regarding this possible medications. Patient is to follow for diet for concerns of gallbladder dysfunctional follow with PCP return parameters discussed - Lab Data Result diagrams: 09/20/22 06:31 09/20/22 06:31 Lab Results 09/20/22 09/20/22 09/20/22 Range/Units 06:31 06:31 06:31 WBC 11.4 H (3.8-10.6) k/uL RBC 4.73 (3.80-5.40) m/uL Hgb 14.5 (11.4-16.0) gm/dL Hct 43.8 (34.0-46.0) % MCV 92.7 (80.0-100.0) fL MCH 30.6 (25.0-35.0) pg MCHC 33.0 (31.0-37.0) g/dL RDW 13.0 (11.5-15.5) % Plt Count 360 (150-450) k/uL MPV 7.9 Neutrophils % 58 % Lymphocytes % 33 % Monocytes % 6 % Eosinophils % 2 % Basophils % 1 % Neutrophils # 6.7 (1.3-7.7) k/uL Lymphocytes # 3.7 (1.0-4.8) k/uL Monocytes # 0.6 (0-1.0) k/uL Eosinophils # 0.2 (0-0.7) k/uL Basophils # 0.1 (0-0.2) k/uL Sodium 139 (137-145) mmol/L Potassium 4.2 (3.5-5.1) mmol/L Chloride 104 (98-107) mmol/L Carbon Dioxide 28 (22-30) mmol/L Anion Gap 7 mmol/L BUN 13 (7-17) mg/dL Creatinine 0.72 (0.52-1.04) mg/dL Est GFR (CKD-EPI)AfAm >90 (>60 ml/min/1.73 sqM) Est GFR (CKD-EPI)NonAf >90 (>60 ml/min/1.73 sqM) Glucose 277 H (74-99) mg/dL Calcium 8.6 (8.4-10.2) mg/dL Total Bilirubin 0.6 (0.2-1.3) mg/dL AST 62 H (14-36) U/L ALT 90 H (4-34) U/L Alkaline Phosphatase 112 (38-126) U/L Total Protein 8.1 (6.3-8.2) g/dL Albumin 4.2 (3.5-5.0) g/dL Lipase 118 (23-300) U/L Urine Color Yellow Urine Appearance Clear (Clear) Urine pH 6.0 (5.0-8.0) Ur Specific [place] 1.025 (1.001-1.035) Urine Protein Trace H (Negative) Urine Glucose (UA) 4+ H (Negative) Urine Ketones Negative (Negative) Urine Blood Negative (Negative) Urine Nitrite Negative (Negative) Urine Bilirubin Negative (Negative) Urine Urobilinogen 2.0 (<2.0) mg/dL Ur Leukocyte Esterase Trace H (Negative) Urine RBC 1 (0-5) /hpf Urine WBC 2 (0-5) /hpf Ur Squamous Epith Cells 2 (0-4) /hpf Urine Bacteria Occasional H (None) /hpf Urine Mucus Rare H (None) /hpf Urine HCG, Qual (Not Detectd) 09/20/22 Range/Units 06:31 WBC (3.8-10.6) k/uL RBC (3.80-5.40) m/uL Hgb (11.4-16.0) gm/dL Hct (34.0-46.0) % MCV (80.0-100.0) fL MCH (25.0-35.0) pg MCHC (31.0-37.0) g/dL RDW (11.5-15.5) % Plt Count (150-450) k/uL MPV Neutrophils % % Lymphocytes % % Monocytes % % Eosinophils % % Basophils % % Neutrophils # (1.3-7.7) k/uL Lymphocytes # (1.0-4.8) k/uL Monocytes # (0-1.0) k/uL Eosinophils # (0-0.7) k/uL Basophils # (0-0.2) k/uL Sodium (137-145) mmol/L Potassium (3.5-5.1) mmol/L Chloride (98-107) mmol/L Carbon Dioxide (22-30) mmol/L Anion Gap mmol/L BUN (7-17) mg/dL Creatinine (0.52-1.04) mg/dL Est GFR (CKD-EPI)AfAm (>60 ml/min/1.73 sqM) Est GFR (CKD-EPI)NonAf (>60 ml/min/1.73 sqM) Glucose (74-99) mg/dL Calcium (8.4-10.2) mg/dL Total Bilirubin (0.2-1.3) mg/dL AST (14-36) U/L ALT (4-34) U/L Alkaline Phosphatase (38-126) U/L Total Protein (6.3-8.2) g/dL Albumin (3.5-5.0) g/dL Lipase (23-300) U/L Urine Color Urine Appearance (Clear) Urine pH (5.0-8.0) Ur Specific [place] (1.001-1.035) Urine Protein (Negative) Urine Glucose (UA) (Negative) Urine Ketones (Negative) Urine Blood (Negative) Urine Nitrite (Negative) Urine Bilirubin (Negative) Urine Urobilinogen (<2.0) mg/dL Ur Leukocyte Esterase (Negative) Urine RBC (0-5) /hpf Urine WBC (0-5) /hpf Ur Squamous Epith Cells (0-4) /hpf Urine Bacteria (None) /hpf Urine Mucus (None) /hpf Urine HCG, Qual Not Detected (Not Detectd) Disposition Clinical Impression: Abdominal pain, Hyperglycemia Disposition: HOME SELF-CARE Condition: Stable Instructions (If sedation given, give patient instructions): Abdominal Pain (ED), Low Fat Diet (ED) Additional Instructions: Please return to the Emergency Department if symptoms worsen or any other concerns. Is patient prescribed a controlled substance at d/c from ED?: No Referrals: None,Stated [Primary Care Provider] - 1-2 days Anival Adorno MD [STAFF PHYSICIAN] - 1-2 days Time of Disposition: 08:00
[2022-09-20 06:57] LABS: ALT 90 U/L (4-34); AST 62 U/L (14-36); African American GFR (CKD) >90 (>60 ml/min/1.73 sqM); Albumin 4.2 g/dL (3.5-5.0); Alkaline Phosphatase 112 U/L (38-126); Anion Gap 7 mmol/L; Blood Urea Nitrogen 13 mg/dL (7-17); Calcium 8.6 mg/dL (8.4-10.2); Carbon Dioxide 28 mmol/L (22-30); Chloride 104 mmol/L (98-107); Glucose 277 mg/dL (74-99); Lipase 118 U/L (23-300); Non-African American GFR(CKD) >90 (>60 ml/min/1.73 sqM); Potassium 4.2 mmol/L (3.5-5.1); Sodium 139 mmol/L (137-145); Total Bilirubin 0.6 mg/dL (0.2-1.3); Total Protein 8.1 g/dL (6.3-8.2)
[2022-09-20 06:59] LABS: Appearance,Urine Clear (Clear); Bacteria,Urine Occasional /hpf; Bilirubin,Urine Negative (Negative); Blood,Urine Negative (Negative); Color,Urine Yellow; Glucose,Urine (UA) 4+ (Negative); Ketones,Urine Negative (Negative); Leukocyte Esterase,Urine Trace (Negative); Mucus,Urine Rare /hpf; Nitrite,Urine Negative (Negative); Protein,Urine Trace (Negative); RBC,Urine 1 /hpf (0-5); Specific Gravity,Urine 1.025 (1.001-1.035); Squamous Epithelial Cell,Urine 2 /hpf (0-4); WBC,Urine 2 /hpf (0-5)
--- NOTE | 2022-09-20 07:47 | CT ---
EXAMINATION TYPE: CT abdomen pelvis wo con CT DLP: 3061.4 mGycm, Automated exposure control for dose reduction was used. DATE OF EXAM: 09/20/2022 7:37 AM COMPARISON: CT abdomen pelvis most recent from 12/02/2018. CLINICAL INDICATION:Female, 27 years old with history of Right-sided pain; RLQ Pain x 5 days TECHNIQUE: Standard CT of the abdomen and pelvis without IV or oral contrast. Lack of IV or oral co ntrast limits evaluation of solid and hollow organ viscera. Coronal and sagittal reformats were perfo rmed. FINDINGS: LOWER CHEST: Unremarkable ABDOMEN LIVER: Diffusely hypoattenuating parenchyma. GALLBLADDER AND BILE DUCTS: Unremarkable. PANCREAS: Unremarkable. SPLEEN: Unremarkable. ADRENAL GLANDS: Unremarkable. KIDNEYS AND URETERS: No evidence of hydronephrosis. Nonobstructive 3 mm right mid kidney calculus. No ureteral calculi demonstrated. PELVIS BLADDER: Under distended, limiting evaluation. REPRODUCTIVE: Unremarkable noncontrast appearance. ABDOMEN & PELVIS STOMACH AND BOWEL: Stomach and duodenum are unremarkable. No focal wall thickening or surrounding in flammatory changes. The appendix is within normal limits. No evidence of bowel obstruction. PERITONEUM: No evidence of pneumoperitoneum or free fluid. VASCULATURE: No evidence of aortic aneurysm. MUSCULOSKELETAL: No acute osseous abnormalities. Degenerative disc disease most pronounced at L4-L5 w ith disc space narrowing, endplate sclerosis, vacuum disc disease, and osteophytosis. LYMPH NODES: No gross evidence for lymphadenopathy. SOFT TISSUE/ABDOMINAL WALL: Tiny fat filled umbilical hernia. IMPRESSION: 1. No acute abdominal/pelvic process. 2. Nonobstructive right renal calculus. 3. Hepatic steatosis.
[2022-09-20 08:20] VITALS: BP 143/95; PULSE 90; RESP 18; TEMP 98.3
== END 2022-09-20 08:21 | disposition home or self-care (01) ==
LOC: EC 06:11
DX: R10.31 Right lower quadrant pain (principal); R73.9 Hyperglycemia, unspecified; J45.909 Unspecified asthma, uncomplicated; I10 Essential (primary) hypertension; E07.9 Disorder of thyroid, unspecified; F32.A Depression, unspecified; F41.9 Anxiety disorder, unspecified; Z91.040 Latex allergy status; Z91.018 Allergy to other foods; Z88.5 Allergy status to narcotic agent; Z88.8 Allergy status to other drugs, medicaments and biological substances; Z91.013 Allergy to seafood; Z79.890 Hormone replacement therapy
CPT/HCPCS: 36415; 74176; 80053; 81001; 81025; 83690; 85025; 96360; 99284